=== PATIENT | male | born 1965 | race Caucasian/White ===

== ENCOUNTER 2017-07-17 05:22 | Day surgery (SDC) | payer OTHER ==
[2017-07-14 14:10] VITALS: BMI 25.6
[2017-07-17] VITALS (14 sets, daily range): BP systolic 104–150; BP diastolic 58–88; PULSE 79–92; RESP 9–20; Ht 193 cm; Wt 93.7 kg
[~2017-07-17] VITALS: Ht 193 cm; Wt 93.7 kg
[2017-07-17] MEDS ORDERED: LACTATED RINGER'S 1,000 ML IV* SCH (06:00)
[2017-07-17] MEDS ORDERED: CEFAZOLIN 2 GM/50 ML (PMX) 50 ML IVPB SCH (06:00)
[2017-07-17] MEDS ORDERED: TRAM50TA2 PO (06:11)
[2017-07-17] MEDS ORDERED: EPHEDrine SULFATE 50 MG/5 ML SYG ONE (07:00)
--- NOTE | 2017-07-17 07:10 | HPN ---
Date/Time of Note Date/Time of Note DATE: 07/17/17 TIME: 07:09 Interval H&P Admission Note Pt. seen H&P reviewed: No system changes GUCCI BAEZA MD Jul 17, 2017 07:09
[2017-07-17] MEDS ORDERED: GELATIN SIZE 100 SPONGE ONE (07:17)
[2017-07-17] MEDS ORDERED: BUPIVACAINE 0.25% (MPF) 30 ML INJ ONE (07:18)
[2017-07-17] MEDS ORDERED: POLYMYXIN/BACITRACIN 1L IRRIG ONE (07:18)
[2017-07-17] MEDS ORDERED: THROMBIN 5000 UNIT VIAL ONE (07:18)
[2017-07-17] MEDS ORDERED: BUPIVACAINE 0.5%/EPI (SDV) 30 ML INJ ONE (07:18)
[2017-07-17] MEDS ORDERED: FENTAnyl 50 MCG/ML VIAL ONE ×2 (07:21→10:48)
[2017-07-17] MEDS ORDERED: ROCURONIUM 50 MG INJ ONE ×3 (07:21→10:34)
[2017-07-17] MEDS ORDERED: PROPOFOL 100 ML ONE (07:21)
[2017-07-17] MEDS ORDERED: MIDAZOLAM 1 MG/ML 2 ML INJ ONE (07:21)
[2017-07-17] MEDS ORDERED: BETHANECHOL 25 MG TAB PO PRN (08:00)
[2017-07-17] MEDS ORDERED: CEFAZOLIN 1 GM INJ ONE ×2 (08:10→10:57)
[2017-07-17] MEDS ORDERED: DEXAMETHASONE 4 MG/ML 1 ML INJ ONE (08:11)
[2017-07-17] MEDS ORDERED: METOCLOPRAMIDE 10 MG INJ ONE (08:11)
[2017-07-17] MEDS ORDERED: ONDANSETRON 4 MG INJ ONE (08:11)
[2017-07-17] MEDS ORDERED: SUGAMMADEX SODIUM 200 MG/2 ML VIAL IV ONE (08:12)
[2017-07-17] MEDS ORDERED: ACETAMINOPHEN 1000MG/100ML IV 100 ML ONE (08:15)
[2017-07-17] MEDS ORDERED: MEPERIDINE 25 MG INJ IV PRN (08:30)
[2017-07-17] MEDS ORDERED: LABETALOL HCL 20MG INJ IV PRN (08:30)
[2017-07-17] MEDS ORDERED: DIPHENHYDRAMINE 50 MG INJ IV PRN (08:30)
[2017-07-17] MEDS ORDERED: hydrALAzine 20 MG INJ IV PRN (08:30)
[2017-07-17] MEDS ORDERED: HYDROmorphONE (0.2 MG/ML) 10ML SYG IV PRN ×3 (08:30)
[2017-07-17] MEDS ORDERED: EPHEDrine SULFATE 50 MG/5 ML SYG IV PRN (08:30)
[2017-07-17] MEDS ORDERED: FENTAnyl 50 MCG/ML VIAL IV PRN ×2 (08:30)
[2017-07-17] MEDS ORDERED: METOCLOPRAMIDE 10 MG INJ IV PRN (08:30)
[2017-07-17] MEDS ORDERED: morphine (1 MG/ML) 10ML SYRINGE IV PRN ×2 (08:30)
[2017-07-17] MEDS ORDERED: ONDANSETRON 4 MG INJ IV PRN (08:30)
[2017-07-17] MEDS ORDERED: PROPOFOL 80 ML ONE (10:55)
[2017-07-17] MEDS ORDERED: BETAMET NA PHOS/AC(6 MG/ML) 5ML INJ ONE (11:06)
--- NOTE | 2017-07-17 11:45 | SIPON ---
Date/Time of Note Date/Time of Note DATE: 07/17/17 TIME: 11:41 Operative Report Preoperative Diagnosis Disc herniaton, leftL5-S1 Postoperative Diagnosis Same Operation/Procedure Performed Lumbar laminotomy and microdiscectomy, spinal monitoring, Left L5-S1. Surgeon see signature line dyer assistant Mela Anesthesia: general Estimated blood loss: 0 - 10 ml's Transfusion Required none Specimen Disc, left, L5-S1 Grafts/Implants none Complications none GUCCI BAEZA MD Jul 17, 2017 11:45
[2017-07-17] MEDS ORDERED: HYDROCODONE/APAP (10/325) TAB GTB PRN (12:00)
[2017-07-17] MEDS ORDERED: traMADol 50 MG TAB PO PRN ×2 (12:00→12:30)
[2017-07-17] MEDS: FENTAnyl 50 MCG/ML VIAL IV PRN ×3 (12:07→12:31)
[2017-07-17] MEDS: morphine (1 MG/ML) 10ML SYRINGE IV PRN ×2 (12:09→12:28)
--- NOTE | 2017-07-17 14:25 | RADRPT ---
PROCEDURE: Intraoperative imaging of the lumbar spine with fluoroscopy. CLINICAL INDICATION: Back pain. Intraoperative. TECHNIQUE: 13 images of the lumbar spine were obtained in the operating room with an image intensi fier. No radiologist was in attendance. Fluoroscopy time is 38.7 seconds. COMPARISON: No prior study is available for comparison. FINDINGS: Images demonstrate surgical instruments overlying the lower lumbar spine. IMPRESSION: 1. Intraoperative imaging of the lumbar spine. RPTAT: QQ .Zoltan Church MD, MD Date Time Electronically viewed and signed by .Zoltan Church MD, on 07/17/2017 14:25 .R/
[2017-07-17] MEDS ORDERED: HYDROCODONE/APAP (10/325) TAB PO PRN (16:00)
--- NOTE | 2017-07-18 12:26 | OPR ---
Date/Time of Note Date/Time of Note DATE: 07/18/17 TIME: 12:21 Operative Report Procedure Date: Jul 17, 2017 Preoperative Diagnosis Disc herniation, left L5-S1 Postoperative Diagnosis Disc herniation, left, L5-S1 Operation/Procedure Performed Laminotomy and microdiscectomy, left, L5-S1 with use of microscope and a spinal monitoring Surgeon see signature line Cream Tester [place] [facility] Anesthesia Type: general Estimated Blood Loss: 0 - 10 ml's Transfusion none Specimen Disc material, L5-S1 Grafts/Implants none Complications none Pt Condition Post Procedure: stable Disposition: PACU Indications Refractory left leg pain with worsening MRI Procedure Description The patient was identified in the holding unit and his questions were answered. The surgical site was marked. He was taken to the operating room and given a general endotracheal anesthetic and positioned facedown on the [facility]ath spinal table. He was prepped and draped in usual manner. Lines had been inserted and spinal monitoring was instituted. Marker x-rays were taken. A 1 inch incision was made approximately 2 cm to the left of the midline and taken down to the fascia which was divided sharply over distance of approximately 3.5 cm. Dilators were then placed and a metrics retractor was positioned over the interlaminar space. Marker x-rays were taken. Electrocautery was used to continue the intralaminar contents of soft tissue. A drill was then used to drill off part of the facet laterally, some lamina of S1, and some lamina of L5. The ligamentum flavum was then removed and a dense release of fibrotic scar tissue was found over all of the structures. This was carefully teased free and the nerve root was isolated and retracted medially. A large soft bulging disc was seen and this was incised. Disc material was removed. Using Florentin curettes and ring curettes, the large bulging portion of the midline annulus was removed piecemeal and in several large pieces 1 of which seems to have been prolapsed up under the sac and migrated distally, as we expected from the MRI. Following this the wound was carefully irrigated, and inspected. A steroid and local anesthetic with epinephrine were instilled over the nerve root. Retractors were removed. The muscle was infiltrated with Marcaine. The fascia was closed in a single layer with #1 [id number] Vicryls. Subcutaneous tissue was closed in 2 layers with 2-0 Vicryl. The skin was closed with Vicryl 4 0 and reinforced with Dermabond. A dressing was applied, and the patient was returned to the supine position, extubated, and transferred to the recovery room in satisfactory condition breathing spontaneously GUCCI BAEZA MD Jul 18, 2017 12:26
== END 2017-07-17 14:40 | disposition home or self-care (01) ==
LOC: SDS 05:22 → EDSTATUS 07:30 → SDS 14:40
PROVIDERS: ATTEND Specialist
DX: M51.17 Intervertebral disc disorders with radiculopathy, lumbosacral region (principal)
CPT/HCPCS: 63030; 72114; 97161; J0131; J0690; J0702; J1100; J1200; J2250; J2270; J2405; J2765; J3010